=== PATIENT | female | born 1930 | race Caucasian/White ===

== ENCOUNTER 2019-03-11 12:55 | Inpatient (IN) ==
[2019-03-11 15:33] LABS: Basophils % 0.5 % (0.0-0.8); Eosinophils # 0.3 10*3/uL (0.0-0.87); Eosinophils % 3.9 % (0.00-10.9); Hemoglobin 11.9 GM/DL (12.0-16.0); Immature Granulocytes % 0.3 %; Immature Granulocytes Absolute 0.02 #; Lymphocytes # 1.5 10*3/uL (1.4-4.0); Lymphocytes % 22.7 % (21.3-54.2); Mean Corpuscular HGB Conc 33.1 GM/DL (32-36); Mean Corpuscular Volume 101.7 FL (87-102); Mean Platelet Volume 9.7 FL (9.6-12.0); Neutrophils % 61.6 % (38.7-73.9); Platelet Count 225 T/CUMM (130-400); Red Blood Count 3.54 MC/CUMM (3.8-5.5); White Blood Count 6.4 T/CUMM (4-12)
[2019-03-11] MEDS ORDERED: PIPERACILLIN/TAZOBACTAM 3,375 MG in SODIUM CHLORIDE 0.9% 100 ML IV STA (15:36)
[2019-03-11 15:55] LABS: Calcium 9.7 MG/DL (8.5-10.1); Osmolality,Calculated 293.1 MOS/KG (273-304)
[2019-03-11] MEDS ORDERED: GLUCAGON 1 MG VIAL IM PRN (17:35)
[2019-03-11] MEDS ORDERED: DEXTROSE 10% 250 ML BAG IV PRN (17:35)
[2019-03-11] MEDS ORDERED: ONDANSETRON 4 MG/2 ML VIAL IV PRN (17:35)
[2019-03-11] MEDS ORDERED: INFLUENZA VIRUS VACCINE 0.5 ML SYRINGE IM ONE (17:57)
[2019-03-11] MEDS: PIPERACILLIN/TAZOBACTAM 3,375 MG in SODIUM CHLORIDE 0.9% 100 ML IV SCH (21:21)
[2019-03-11] MEDS: ACETAMINOPHEN 325 MG TABLET PO PRN (21:22)
[2019-03-11] MEDS: DOCUSATE SODIUM 100 MG CAPSULE PO SCH (21:22)
[2019-03-12] MEDS: ACETAMINOPHEN 325 MG TABLET PO PRN (03:08)
[2019-03-12] MEDS: PIPERACILLIN/TAZOBACTAM 3,375 MG in SODIUM CHLORIDE 0.9% 100 ML IV SCH ×3 (05:31→21:51)
[2019-03-12] MEDS: DOCUSATE SODIUM 100 MG CAPSULE PO SCH ×2 (09:16→20:39)
[2019-03-12] MEDS: PANTOPRAZOLE 40 MG TABLET PO SCH (09:16)
[2019-03-12] MEDS ORDERED: GLUCAGON 1 MG VIAL IM PRN (10:42)
[2019-03-12] MEDS ORDERED: DEXTROSE 50% 25 GM/50 ML VIAL IV PRN (10:42)
[2019-03-12 11:02] LABS: Basophils % 0.4 % (0.0-0.8); Eosinophils # 0.2 10*3/uL (0.0-0.87); Eosinophils % 4.2 % (0.00-10.9); Hematocrit 35.3 VOL% (35.7-47.0); Hemoglobin 11.8 GM/DL (12.0-16.0); Immature Granulocytes % 0.4 %; Immature Granulocytes Absolute 0.02 #; Lymphocytes # 1.3 10*3/uL (1.4-4.0); Lymphocytes % 27.8 % (21.3-54.2); Mean Corpuscular HGB Conc 33.4 GM/DL (32-36); Mean Platelet Volume 9.7 FL (9.6-12.0); Monocytes % 9.3 % (1.7-12.7); Neutrophils % 57.9 % (38.7-73.9); Platelet Count 219 T/CUMM (130-400); Red Blood Count 3.53 MC/CUMM (3.8-5.5); Red Cell Distribution Width 13.9 % (9.3-17.3); White Blood Count 4.5 T/CUMM (4-12)
[2019-03-12] MEDS ORDERED: LIDOCAINE 1% 20 ML VIAL ONE (11:15)
[2019-03-12] MEDS ORDERED: BUPIVACAINE MPF 0.25% 30 ML VIAL ONE (11:15)
[2019-03-12 11:27] LABS: Albumin 2.9 G/DL (3.4-5.0); Bilirubin,Total 0.8 MG/DL (0.2-1.0); Calcium 9.3 MG/DL (8.5-10.1); Osmolality,Calculated 291.8 MOS/KG (273-304); Total Protein 6.7 G/DL (6.4-8.3)
[2019-03-12] MEDS: INSULIN LISPRO 100 UNIT/ML SUBCUT SCH ×3 (11:33→20:39)
[2019-03-12] MEDS ORDERED: LIDOCAINE 2% 5 ML VIAL ONE (12:39)
[2019-03-12] MEDS ORDERED: PROPOFOL 200 MG/20 ML VIAL IV ONE (12:39)
[2019-03-12] MEDS: GABAPENTIN 600 MG TABLET PO SCH ×2 (14:40→20:38)
[2019-03-12] MEDS ORDERED: LEVOFLOXACIN INJ 750 MG in PREMIX 1 EACH IV SCH (16:00)
[2019-03-12 16:36] LABS: Apearance,Urine CLEAR (Clear); Bilirubin,Urine Negative (Negative); Blood, Urine Negative (Negative); Glucose,Urine (UA) Negative (Negative); Ketones,Urine Negative (Negative); Nitrite,Urine Negative (Negative); Protein,Urine Negative; RBC,Urine 2 /HPF (0-4); Squamous Epithelial Cell,Urine Occasional /HPF (0-10); Urine Color Straw (Yellow); Urine Specific Gravity 1.008 (1.001-1.035); Urine Urobilinogen < 2.0 EU/DL (0.2-1.0); WBC,Urine 1 /HPF (0-6)
[2019-03-12] MEDS: ASPIRIN EC 325 MG TABLET PO SCH (20:38)
[2019-03-13 05:05] LABS: Basophils % 0.2 % (0.0-0.8); Eosinophils # 0.2 10*3/uL (0.0-0.87); Eosinophils % 4.8 % (0.00-10.9); Hematocrit 35.3 VOL% (35.7-47.0); Hemoglobin 11.6 GM/DL (12.0-16.0); Immature Granulocytes % 0.4 %; Immature Granulocytes Absolute 0.02 #; Lymphocytes # 1.4 10*3/uL (1.4-4.0); Lymphocytes % 28.3 % (21.3-54.2); Mean Corpuscular HGB Conc 32.9 GM/DL (32-36); Mean Corpuscular Volume 101.1 FL (87-102); Mean Platelet Volume 9.4 FL (9.6-12.0); Monocytes % 10.2 % (1.7-12.7); Neutrophils % 56.1 % (38.7-73.9); Platelet Count 202 T/CUMM (130-400); Red Blood Count 3.49 MC/CUMM (3.8-5.5); Red Cell Distribution Width 14.1 % (9.3-17.3)
[2019-03-13 05:27] LABS: Albumin 2.8 G/DL (3.4-5.0); Bilirubin,Total 0.5 MG/DL (0.2-1.0); Calcium 9.2 MG/DL (8.5-10.1); Total Protein 6.6 G/DL (6.4-8.3)
[2019-03-13] MEDS: PIPERACILLIN/TAZOBACTAM 3,375 MG in SODIUM CHLORIDE 0.9% 100 ML IV SCH ×3 (05:30→21:09)
[2019-03-13] MEDS: INSULIN LISPRO 100 UNIT/ML SUBCUT SCH ×4 (08:37→21:05)
[2019-03-13] MEDS: TORSEMIDE 20 MG TABLET PO SCH (08:37)
[2019-03-13] MEDS: DOCUSATE SODIUM 100 MG CAPSULE PO SCH ×2 (08:38→21:04)
[2019-03-13] MEDS: ISOSORBIDE MONONITRATE 60 MG TABLET PO SCH (08:38)
[2019-03-13] MEDS: amLODIPine 10 MG TABLET PO SCH (08:38)
[2019-03-13] MEDS: MULTIVITAMIN (CENTRUM) TABLET PO SCH (08:38)
[2019-03-13] MEDS: ALLOPURINOL 100 MG TABLET PO SCH (08:38)
[2019-03-13] MEDS: ASCORBIC ACID 500 MG TABLET PO SCH (08:38)
[2019-03-13] MEDS: PANTOPRAZOLE 40 MG TABLET PO SCH (08:38)
[2019-03-13] MEDS: CHOLECALCIFEROL 1,000 UNIT TABLET PO SCH (08:38)
[2019-03-13] MEDS: ATORVASTATIN 40 MG TABLET PO SCH (08:38)
[2019-03-13] MEDS: LISINOPRIL 20 MG TABLET PO SCH (08:39)
[2019-03-13] MEDS: GABAPENTIN 600 MG TABLET PO SCH ×3 (08:39→21:04)
[2019-03-13] MEDS: INSULIN LISPRO PROTAMINE/LISPRO 75/25 100 UNIT/ML SUBCUT SCH (17:24)
[2019-03-13] MEDS: ASPIRIN EC 325 MG TABLET PO SCH (21:04)
[2019-03-14 05:25] LABS: Basophils % 0.6 % (0.0-0.8); Eosinophils # 0.3 10*3/uL (0.0-0.87); Eosinophils % 6.1 % (0.00-10.9); Hemoglobin 10.4 GM/DL (12.0-16.0); Immature Granulocytes % 0.2 %; Immature Granulocytes Absolute 0.01 #; Lymphocytes # 1.6 10*3/uL (1.4-4.0); Mean Corpuscular HGB Conc 32.5 GM/DL (32-36); Mean Corpuscular Volume 100.6 FL (87-102); Mean Platelet Volume 9.9 FL (9.6-12.0); Monocytes % 9.1 % (1.7-12.7); Platelet Count 214 T/CUMM (130-400); Red Blood Count 3.18 MC/CUMM (3.8-5.5); Red Cell Distribution Width 13.9 % (9.3-17.3); White Blood Count 5.3 T/CUMM (4-12)
[2019-03-14] MEDS: PIPERACILLIN/TAZOBACTAM 3,375 MG in SODIUM CHLORIDE 0.9% 100 ML IV SCH (05:35)
[2019-03-14 05:40] LABS: Calcium 8.9 MG/DL (8.5-10.1); Osmolality,Calculated 291.3 MOS/KG (273-304)
[2019-03-14] MEDS: INSULIN LISPRO PROTAMINE/LISPRO 75/25 100 UNIT/ML SUBCUT SCH ×2 (07:58→12:04)
[2019-03-14] MEDS: TORSEMIDE 20 MG TABLET PO SCH (08:01)
[2019-03-14] MEDS: PANTOPRAZOLE 40 MG TABLET PO SCH (08:02)
[2019-03-14] MEDS: GABAPENTIN 600 MG TABLET PO SCH ×2 (08:05→12:02)
[2019-03-14] MEDS: MULTIVITAMIN (CENTRUM) TABLET PO SCH (08:05)
[2019-03-14] MEDS: LISINOPRIL 20 MG TABLET PO SCH (08:06)
[2019-03-14] MEDS: DOCUSATE SODIUM 100 MG CAPSULE PO SCH (08:06)
[2019-03-14] MEDS: ISOSORBIDE MONONITRATE 60 MG TABLET PO SCH (08:06)
[2019-03-14] MEDS: ALLOPURINOL 100 MG TABLET PO SCH (08:06)
[2019-03-14] MEDS: ASCORBIC ACID 500 MG TABLET PO SCH (08:06)
[2019-03-14] MEDS: INSULIN LISPRO 100 UNIT/ML SUBCUT SCH ×2 (08:07→12:05)
[2019-03-14] MEDS: ATORVASTATIN 40 MG TABLET PO SCH (08:07)
[2019-03-14] MEDS: CHOLECALCIFEROL 1,000 UNIT TABLET PO SCH (08:07)
[2019-03-14] MEDS: amLODIPine 10 MG TABLET PO SCH (08:07)
[2019-03-14 12:57] VITALS: BP 140/66
== END 2019-03-14 12:09 | disposition home health service (06) | DRG 617 ==
LOC: N.ED 12:55 → N.EDINP 15:37 → N.5E 17:34
PROVIDERS: ADMIT Internal Medicine; ATTEND Internal Medicine